=== PATIENT | female | born 1985 | race African-American/Black ===

== ENCOUNTER 2018-08-10 02:29 | Emergency (ER) | payer MEDICAID ==
[~2018-08-10] VITALS: Ht 165.1 cm; Wt 68.0 kg
[2018-08-10] MEDS ORDERED: MORPHINE SULFATE 4 MG/ML CPJ (NOT FOR IM USE) IV STA (10:02)
[2018-08-10] MEDS ORDERED: ONDANSETRON HCL 4MG/2ML INJ IV STA (10:02)
[2018-08-10] MEDS ORDERED: SODIUM CHLORIDE 0.9% 1,000 ML IV ONE (10:02)
[2018-08-10 11:16] LABS: BASOPHILS % 0.7 % (0.0-2.0); EOSINOPHILS % 0.9 % (0.0-5.0); HEMATOCRIT. 42.5 % (36.0-48.0); HEMOGLOBIN. 14.3 g/dL (12.0-16.0); LYMPHOCYTES % 24.1 % (20.0-50.0); MEAN CORPUSCULAR HEMOGLOBIN 29.7 pg (28.0-32.0); MEAN CORPUSCULAR VOLUME 88.2 fL (81.0-99.0); MEAN PLATELET VOLUME 10.6 fl (7.4-10.4); NEUTROPHILS % 68.3 % (40.0-76.0); PLATELET 234 x1000/uL (130-400); RED BLOOD CELL COUNT 4.82 mill/uL (4.2-5.4); RED CELL DISTRIBUTION WIDTH 13.2 % (11.6-14.6)
[2018-08-10 11:22] LABS: CLARITY URINE CLEAR (CLEAR); COLOR URINE YELLOW (YELLOW); KETONES URINE NEGATIVE (NEGATIVE); LEUKOCYTE ESTERASE URINE 2+ (NEGATIVE); NITRITE URINE NEGATIVE (NEGATIVE); OCCULT BLOOD URINE NEGATIVE (NEGATIVE); PH URINE 6.5 (4.5-8.0); PROTEIN URINE NEGATIVE (NEGATIVE); SPECIFIC GRAVITY URINE 1.004 (1.005-1.030); UROBILINOGEN URINE 0.2 E.U./dL (0.2-1.0)
[2018-08-10 11:24] LABS: CHLORIDE 106 mEq/L (98-107); PROTHROMBIN TIME 10.1 sec (9.1-11.1)
[2018-08-10 11:59] LABS: HCG SCREEN NEGATIVE
[2018-08-10] MEDS ORDERED: DEXTROSE 50% WATER 50ML SYRINGE IV ONE (12:00)
[2018-08-10] MEDS ORDERED: IOHEXOL-300 100 ML BOTTLE ONE (12:58)
[2018-08-10] MEDS ORDERED: KETOROLAC 30MG/ML VIAL IV ONE (14:00)
[2018-08-10 14:58] VITALS: BP 107/68
== END 2018-08-10 15:02 | disposition home or self-care (01) ==
LOC: ER 02:29
DX: R10.11 Right upper quadrant pain (principal); R11.2 Nausea with vomiting, unspecified; R19.7 Diarrhea, unspecified; E16.2 Hypoglycemia, unspecified; F41.9 Anxiety disorder, unspecified; D72.829 Elevated white blood cell count, unspecified; F17.210 Nicotine dependence, cigarettes, uncomplicated; Z85.79 Personal history of other malignant neoplasms of lymphoid, hematopoietic and related tissues; Z98.890 Other specified postprocedural states; Z90.49 Acquired absence of other specified parts of digestive tract
CPT/HCPCS: 36415; 74177; 76830; 76856; 80053; 81003; 82962; 83690; 84703; 85025; 85610; 96361; 96374; 96375; 99284; J1885; J2270; J2405; J7030; Q9967